=== PATIENT | male | born 1975 | race African-American/Black ===

== ENCOUNTER 2019-10-26 17:23 | Emergency (ER) | payer OTHER, SELFPAY ==
[2019-10-26 17:37] VITALS: BP 147/104; PULSE 93; RESP 16; TEMP 36.6; O2SAT 99
--- NOTE | 2019-10-26 17:39 | ED.GENADULT ---
HPI - General Adult General Chief complaint: Nausea/Vomiting/Diarrhea Stated complaint: nausea Source: patient and RN notes reviewed Mode of arrival: ambulatory Limitations: no limitations History of Present Illness HPI narrative: This is a 44 years old male presents to the office for a work excuse. He woke up this morning not feeling well so he called off work. He stated he vomited once and then he felt better. He is feeling well however his boss told him to get a note from a doctor for his absent.He works at the [employer]. Denies sick contact at home or at work. Related Data Home Medications Medication Instructions Recorded Confirmed No Home Medications 10/26/19 10/26/19 Allergies Allergy/AdvReac Type Severity Reaction Status Date / Time No Known Allergies Allergy Verified 10/26/19 17:46 Review of Systems Review of Systems: Narrative: CONSTITUTIONAL: Denies fever, chills ENT: Denies congestion, sore throat CARDIOVASCULAR: Denies chest pain RESPIRATORY: Denies cough GASTROINTESTINAL: Denies abdominal pain or diarrhea. Reports nauseated feeling and vomiting once. GENITOURINARY: Denies urinary symptoms or discharge SKIN: Denies rash MUSCULOSKELETAL: Denies acute back pain NEUROLOGIC: Denies lightheaded PMFSH Social History Social History (Updated 10/26/19 @ 17:53 by LEATHA Esquivel) Smoking status: Current every day smoker Comments At time of signature, I agree with nursing past medical, surgical, social and family history. There is no relevant family history pertinent to the presenting complaint. Exam Narrative: Exam Narrative: GENERAL: This is a well-nourished, well-developed patient, in no apparent distress. EYES: Sclera clear/white. Vision is grossly intact. CARDIOVASCULAR: Regular rate and rhythm without murmurs, gallops, or rubs. RESPIRATORY: Clear to auscultation. Breath sounds equal bilaterally. No wheezes, rales, or rhonchi. GASTROINTESTINAL: Abdomen soft, non-tender, nondistended. Bowel sounds are active. No hepato-splenomegaly, or palpable masses. No guarding. SKIN: warm, intact with no suspicious lesions or rash, good texture and turgor. NEURO: awake, alert, and oriented to person, place and time. There were no obvious focal neurologic abnormalities. Steady gait Sheldon Coma Scale Eye Opening: Spontaneous 4 Sheldon Coma Scale Motor: Obeys Commands 6 Lynn Coma Scale Verbal: Oriented 5 Course Vital Signs Vital signs: Vital Signs Temperature 97.9 F 10/26/19 17:37 Pulse Rate 93 10/26/19 17:37 Respiratory Rate 16 10/26/19 17:37 Blood Pressure 147/104 H 10/26/19 17:37 Pulse Oximetry 99 10/26/19 17:37 Temperature 97.9 F 10/26/19 17:37 Pulse Rate 93 10/26/19 17:37 Respiratory Rate 16 10/26/19 17:37 Blood Pressure 147/104 H 10/26/19 17:37 Pulse Oximetry 99 10/26/19 17:37 Medical Decision Making MDM Narrative Medical decision making narrative: Discharge instructions reviewed with patient, as well as provided in writing per nursing staff. The instructions also include specific and strict return/GO TO THE ER as well as f/u information. All questions have been answered, and the patient deny any further questions with discharge and discharge plan. Differential Diagnosis Differential Diagnosis: Gastroenteritis, colitis, food poisoning, influenza Vital Signs Vital Signs: Vital Signs Temperature 97.9 F 10/26/19 17:37 Pulse Rate 93 10/26/19 17:37 Respiratory Rate 16 10/26/19 17:37 Blood Pressure 147/104 H 10/26/19 17:37 Pulse Oximetry 99 10/26/19 17:37 Temperature 97.9 F 10/26/19 17:37 Pulse Rate 93 10/26/19 17:37 Respiratory Rate 16 10/26/19 17:37 Blood Pressure 147/104 H 10/26/19 17:37 Pulse Oximetry 99 10/26/19 17:37 Critical Care Time Critical Care Time Critical Care Time: No Discharge Plan Discharge Clinical Impression: Encounter to obtain excuse from work, Elevated BP without diagno
== END 2019-10-26 17:51 | disposition home or self-care (01) ==
PROVIDERS: Emergency Provider Nurse Practitioner
DX: R11.11 Vomiting without nausea (principal); R03.0 Elevated blood-pressure reading, without diagnosis of hypertension; J44.9 Chronic obstructive pulmonary disease, unspecified; F17.210 Nicotine dependence, cigarettes, uncomplicated
CPT/HCPCS: 99201; G0463

== ENCOUNTER 2024-03-06 16:17 | Emergency (ER) | payer BC, SELFPAY ==
--- NOTE | ~2024-03-06 | CT_ITS ---
EXAMINATION: CT cervical spine wo con DATE: 03/06/2024 17:26 INDICATION: Head injury. Fall. TECHNIQUE: Computed tomography (CT) of the cervical spine was performed without intravenous contrast. Automated exposure control and iterative reconstruction technique were employed. The dose-length pro duct was 567.44 mGy-cm. COMPARISON: None FINDINGS: There is hypolordosis of cervical spine. Vertebral body heights are normal. There is mildly decreased disc height at C5-C6. The following disc levels are specifically discussed: C2-C3: There is no uncovertebral joint osteoarthritis. There is mild bilateral facet joint osteoarthr itis. There is no neural foraminal stenosis. There is no central canal stenosis. C3-C4: There is no uncovertebral joint osteoarthritis. There is mild bilateral facet joint osteoarthr itis. There is no neural foraminal stenosis. There is no central canal stenosis. C4-C5: There is mild left uncovertebral joint osteoarthritis. There is mild left facet joint osteoart hritis. There is no neural foraminal stenosis. There is no central canal stenosis. C5-C6: There is no uncovertebral joint osteoarthritis. There is no facet joint osteoarthritis. There is no neural foraminal stenosis. There is no central canal stenosis. C6-C7: There is no uncovertebral joint osteoarthritis. There is no facet joint osteoarthritis. There is no neural foraminal stenosis. There is no central canal stenosis. C7-T1: There is no uncovertebral joint osteoarthritis. There is mild bilateral facet joint osteoarthr itis. There is no neural foraminal stenosis. There is no central canal stenosis. IMPRESSION: 1. No fracture. 2. Mild cervical spondylosis. Reviewed, dictated and finalized at location A.
--- NOTE | ~2024-03-06 | CT_ITS ---
EXAMINATION: CT brain wo con DATE: 03/06/2024 17:26 INDICATION: Head injury. Fall. TECHNIQUE: Computed tomography (CT) of the head was performed without intravenous contrast. The mA wa s adjusted according to patient size. Iterative reconstruction technique was employed. The dose-lengt h product was 605.33 mGy-cm. COMPARISON: None FINDINGS: There is no intracranial hemorrhage, acute infarction, or abnormal intracranial mass lesion . The ventricles are normal in size. There is an old blowout fracture of medial wall of left orbit. T here is mild mucosal thickening in the paranasal sinuses. The orbits are normal. The mastoid air cell s are normal. IMPRESSION: 1. Normal brain. Reviewed, dictated and finalized at location A. IMPRESSION: 1. Normal brain.
[2024-03-06 16:58] VITALS: BP 154/84; PULSE 50; TEMP 36.4; O2SAT 100
--- NOTE | 2024-03-06 17:03 | ED.ABDPAIN ---
HPI - Abdominal Pain General Chief Complaint: Abdominal Pain <Keila Chávez PA-C - Last Filed: 03/07/24 14:46> Stated Complaint: Fall-hit head, Abdominal pain, nausea, vomiting, <Keila Chávez PA-C - Last Filed: 03/07/24 14:46> Time Seen by Provider: 03/06/24 17:03 <Keila Chávez PA-C - Last Filed: 03/07/24 14:46> Focused HPI: This is a 48-year-old male that presents to the emergency department for abdominal pain ongoing since this morning. Reports associated nausea and vomiting. Reports feeling generally unwell. This caused him to fall and hit his head. Reports associated neck pain. Denies focal numbness or weakness. GENERAL: Well-appearing, well-nourished, and in no acute distress. HEAD: Normocephalic, atraumatic. CHEST: Clear to auscultation. ?No respiratory distress. HEART: Regular rate and rhythm.? NEURO: ?Alert and oriented x3. Patient screened in triage and initial orders placed.? ?Additional care and disposition to be based upon?diagnostic testing and treatment. <Keila Chávez PA-C - Last Filed: 03/07/24 14:46> History of Present Illness HPI narrative: 48-year-old male presenting with abdominal pain and nausea. States that he woke up this morning with severe diffuse abdominal pain associated with nausea and vomiting. States that this has happened at least 7-8 other times. He normally goes to the hospital and is able to be discharged but he does not know if they ever send him home with a prescription. States that he also has a headache after falling earlier in striking his head. States that he lost his balance due to his pain and nausea. No loss of consciousness. Complains of dysuria, no penile discharge or testicular pain. No flank pain. No fevers. Had an appendectomy several months ago. <Thais Herr MD - Last Filed: 03/07/24 23:06> Related Data Home Medications: Home Medications Medication Instructions Recorded Confirmed No Home Medications 10/26/19 10/26/19 <Keila Chávez PA-C - Last Filed: 03/07/24 14:46> Allergies/Adverse Reactions: Allergies Allergy/AdvReac Type Severity Reaction Status Date / Time No Known Allergies Allergy Verified 03/06/24 20:23 <Keila Chávez PA-C - Last Filed: 03/07/24 14:46> Review of Systems Review of Systems: All systems reviewed & are unremarkable except as noted in HPI and below <Thais Herr MD - Last Filed: 03/07/24 23:06> [facility] Past Medical History Medical History: Medical History (Updated 03/07/24 @ 14:46 by Keila Chávez PA-C) History of gastroesophageal reflux (GERD) <Keila Chávez PA-C - Last Filed: 03/07/24 14:46> Social History Social History: Social History Smoking status: Current every day smoker <Keila Chávez PA-C - Last Filed: 03/07/24 14:46> Exam Narrative: GENERAL: Nontoxic, loudly vomiting HEAD: Normocephalic, atraumatic. EYES: PERRLA and EOMI. ENT: Grossly unremarkable NECK: Supple. CHEST: Clear to auscultation. No respiratory distress. HEART: Regular rate and rhythm ABDOMEN: Soft, diffuse abdominal tenderness, no CVA tenderness EXTREMITIES: Normal range of motion. No edema. SKIN: Warm, dry, no rash. NEURO: No focal deficits. Alert and oriented x3. PSYCH: Normal mood and affect. <Thais Herr MD - Last Filed: 03/07/24 23:06> Course Vital Signs Vital signs: Vital Signs Temperature 97.5 F L 03/06/24 16:58 Pulse Rate 50 L 03/06/24 16:58 Blood Pressure 154/84 H 03/06/24 16:58 Pulse Oximetry 100 03/06/24 16:58 Oxygen Delivery Room Air 03/06/24 16:58 Temperature 97.5 F L 03/06/24 16:58 Pulse Rate 71 03/06/24 22:17 Respiratory Rate 22 H 03/06/24 22:17 Blood Pressure 135/78 03/06/24 22:17 Pulse Oximetry 100 03/06/24 22:17 Oxygen Delivery Room Air 03/06/24 20:15 <Keila Chávez PA-C - Last Filed: 03/07/24 1
[2024-03-06 17:44] LABS: Basophils Percent Auto 0.3 % (0.2-1.2); Eosinophils Percent Auto 0.1 % (0-4.4); Hemoglobin 17.1 g/dL (14.0-18.0); Immature Granulocyte Absolute 0.03 K/mm3 (0.00-0.031); Immature Granulocyte Percent A 0.4 % (0-0.5); Lymphocytes Absolute Auto 1.24 K/mm3 (0.9-3.2); Lymphocytes Percent Auto 16.9 % (18.3-44.2); Mean Corpuscular HGB Conc 33.5 g/dl (32-36); Mean Corpuscular Hemoglobin 29.4 pg (26-34); Mean Corpuscular Volume 87.8 fl (80-100); Mean Platelet Volume 10.5 fl (7.4-10.4); Monocytes Absolute Auto 0.3 K/mm3 (0.1-0.6); Monocytes Percent Auto 4.2 % (2.6-8.5); Neutrophils Absolute Auto 5.7 K/mm3 (1.3-6.7); Neutrophils Percent Auto 78.1 % (45.5-73.1); Platelet Count Result 204 k/mm3 (150-375); Red Blood Count 5.81 M/mm3 (4.6-6.20); Red Cell Distribution Width 16.4 % (11.5-14.5); White Blood Count 7.3 K/mm3 (4.5-10.0)
[2024-03-06 17:58] LABS: Alanine Aminotransferase 26 U/L (6-50); Albumin Level 4.6 g/dL (3.5-5.1); Alkaline Phosphatase 57 U/L (38-126); Anion Gap 11 mmol/L (4-12); Aspartate Amino Transferase 31 U/L (17-59); Bilirubin,Total 1.4 mg/dL (0.2-1.3); Blood Urea Nitrogen 15 mg/dL (9-20); Calcium 9.7 mg/dL (8.4-10.2); Carbon Dioxide 21 mmol/L (22-30); Chloride 105 mmol/L (98-107); Estimated Glomerular Filt Rate > 60; Glucose 103 mg/dL (65-110); Lipase 43 U/L (23-300); Sodium 137 mmol/L (137-145)
[2024-03-06 18:32] LABS: Platelet Estimate Adequate (Adequate)
[2024-03-06 18:33] LABS: Anisocytosis 2+; Large Platelets Present; Schistocytes None Seen
--- NOTE | 2024-03-06 18:59 | PC.NURSE ---
Assumed care of pt from CHRISTOPHER Coronado at this time.
[2024-03-06 19:25] VITALS: BP 146/87; PULSE 60; RESP 22; O2SAT 100
[2024-03-06 20:15] VITALS: BP 148/94; PULSE 64; RESP 25; O2SAT 98
[2024-03-06 20:26] LABS: Add Urine Microscopic? YES; Appearance Urine Clear (Clear); Bacteria Urine None Seen /hpf; Bilirubin Urine 1+ (Negative); Blood Urine Negative (Negative); Color Urine Dark Yellow (Yellow); Glucose Urine UA Negative (Negative); Ketones Urine 2+ mg/dL (Negative); Leukocyte Esterase Ur Trace LEU/UL (Negative); Mucus Urine Present /lpf; Need Manual Microscopic Reviewed; Nitrate Urine Negative (Negative); Non Pathogenic Casts 0-2; Protein Urine 2+ mg/dL (Negative); Specific Grav Ur 1.031 (1.001-1.035); Squamous Epithelial Cell Urine None Seen /hpf (Few); WBC Urine 0-5 /hpf (0-3); pH Urine >=9.0 (5.0-9.0)
[2024-03-06] MEDS: SODIUM CHLORIDE 0.9% IV 1,000 ML 999 ML IV CONT (20:46)
[2024-03-06] MEDS: droPERidol 5 MG/2 ML VIAL 2.5 MG IV PUSH (20:46)
[2024-03-06 20:53] LABS: Amphetamine Screen Urine Negative (Negative); Barbiturate Screen Urine Negative (Negative); Benzodiazepines Screen Urine Positive (Negative); Cannabinoid Screen Urine Positive (Negative); Cocaine Screen Urine Negative (Negative); Methadone Screen Urine Negative (Negative); Opiate Screen Urine Negative (Negative); Phencyclidine Screen Urine Negative (Negative)
[2024-03-06 22:17] VITALS: BP 135/78; PULSE 71; RESP 22; O2SAT 100
[2024-03-07 00:05] LABS: Chlamydia trachomatis NOT DETECTED (NOT DETECTE); Neisseria gonorrhoeae PCR NOT DETECTED (NOT DETECTE)
== END 2024-03-06 22:38 | disposition home or self-care (01) ==
PROVIDERS: Physician Assistant; Emergency Provider Emergency Medicine
DX: R11.2 Nausea with vomiting, unspecified (principal); R10.84 Generalized abdominal pain; W19.XXXA Unspecified fall, initial encounter; K21.9 Gastro-esophageal reflux disease without esophagitis; F17.210 Nicotine dependence, cigarettes, uncomplicated
CPT/HCPCS: 23665; 36415; 70450; 72125; 80053; 80307; 81001; 83690; 85025; 87491; 87591; 96361; 96374; 99284; J1790; J7030